=== PATIENT | female | born 1940 | race Caucasian/White ===

== ENCOUNTER → 2016-08-19 | Outpatient (CLI) | payer MEDICARE, OTHER | LOC: MC.RAD 10:00 | DX: Z12.31 Encounter for screening mammogram for malignant neoplasm of breast (principal) ==

== ENCOUNTER → 2017-06-13 | Outpatient (CLI) | payer MEDICARE, OTHER ==
[2017-06-13 11:13] LABS: HIV 1/2 Antibodies Non-Reactive; HIV-1p24 Antigen Non-Reactive
== END ==
LOC: COL.LAB 10:21
PROVIDERS: Orthopaedic Surgery
DX: Z01.812 Encounter for preprocedural laboratory examination (principal); M17.11 Unilateral primary osteoarthritis, right knee

== ENCOUNTER → 2017-09-01 | Outpatient (CLI) | payer MEDICARE, OTHER | LOC: MC.RAD 13:00 | DX: Z12.31 Encounter for screening mammogram for malignant neoplasm of breast (principal) ==

== ENCOUNTER → 2018-09-28 | Outpatient (CLI) | payer MEDICARE, OTHER | LOC: MC.RAD 10:45 | DX: Z12.31 Encounter for screening mammogram for malignant neoplasm of breast (principal) ==

== ENCOUNTER → 2019-10-22 | Outpatient (CLI) | payer MEDICARE, OTHER | LOC: MC.RAD 07:57 | DX: Z12.31 Encounter for screening mammogram for malignant neoplasm of breast (principal) ==

== ENCOUNTER → 2020-10-23 | Outpatient (CLI) | payer MEDICARE, OTHER ==
[~2020-10-23] MED LIST: ALEVE LIQCAPS PO; ATIVAN 0.50.5 MG/TAB PO; BIOTIN2500 MCG PO; DITROPAN 5MG TAB5 MG PO; FLONASEALLERGY NS; MELATONIN1 MG PO; MELATONIN5 M1 SL; MOVE FREE JOIN1 EACH PO; NORCO 325 MG-51 TAB PO; THERATEARS 0.60.6 ML OU; TYLENOL 325MG325 MG PO; TYLENOL 500MG500 MG PO; XALATAN EYE DROPS OU
== END ==
LOC: MC.RAD 10:08
DX: Z12.31 Encounter for screening mammogram for malignant neoplasm of breast (principal); R92.0 Mammographic microcalcification found on diagnostic imaging of breast

== ENCOUNTER → 2020-10-26 | Outpatient (CLI) | payer MEDICARE, OTHER | LOC: MC.RAD 13:51 | DX: R92.0 Mammographic microcalcification found on diagnostic imaging of breast (principal) ==

== ENCOUNTER → 2020-11-08 | Outpatient (CLI) | payer MEDICARE, OTHER | LOC: MC.RAD 08:27 | DX: C50.911 Malignant neoplasm of unspecified site of right female breast (principal); R92.0 Mammographic microcalcification found on diagnostic imaging of breast ==

== ENCOUNTER 2020-12-06 06:44 | Day surgery (SDC) | payer MEDICARE, OTHER ==
[~2020-12-06] VITALS: Ht 170.2 cm; Wt 97.6 kg
[2020-12-06] MEDS ORDERED: DITROPAN 5MG TAB5 MG PO (10:07)
[2020-12-06] MEDS ORDERED: ATIVAN 0.50.5 MG/TAB PO (10:08)
[2020-12-06] MEDS ORDERED: FLONASEALLERGY NS (10:11)
[2020-12-06] MEDS ORDERED: XALATAN EYE DROPS OU (10:12)
[2020-12-06] MEDS ORDERED: MOVE FREE JOIN1 EACH PO (10:14)
[2020-12-06] MEDS ORDERED: BIOTIN2500 MCG PO ×2 (10:14→10:16)
[2020-12-06] MEDS ORDERED: TYLENOL 325MG325 MG PO (10:18)
[2020-12-06] MEDS ORDERED: ALEVE LIQCAPS PO (10:18)
[2020-12-06] MEDS ORDERED: MELATONIN1 MG PO (10:20)
[2020-12-06] MEDS ORDERED: THERATEARS 0.60.6 ML OU (10:21)
[2020-12-06 10:26] VITALS: BP 125/63; PULSE 66; TEMP 97.7
--- NOTE | 2020-12-06 10:41 | NUR ---
Initial visit; Patient and her son thanked Community Youth Secretary for offering comfort, encouragement and prayer prior to her surgical procedure. Community Youth Secretary will continue to look in on Alonso while she is hospitalized.
[2020-12-06] MEDS ORDERED: NORCO 325 MG-51 TAB PO (14:07)
[2020-12-06 14:55] VITALS: BP 123/64; PULSE 49; TEMP 97.9
--- NOTE | 2020-12-06 14:55 | NUR ---
PATIENT BROUGHT BACK TO [facility] VIA CART PLACED ON MONITORS, HR LOW AT 49. PATIENT ON 2L VIA NC OXYGEN AT THIS TIME. MAINTAINS SPO2. DENIES NAUSEA STATES PAIN IS 2/10 FEELS LIKE A BURNING SENSATION. REQUESTS WATER AT THIS TIME. SON AT BEDSIDE. INCISIONS TO RIGHT BREAST AND RIGHT ARM PIT CDI. CALL BULLARD WITHIN REACH, ALL SAFETY MAINTAINED. WILL CONTINUE TO WATER.
[2020-12-06 15:10] VITALS: BP 132/83; PULSE 67
--- NOTE | 2020-12-06 15:10 | NUR ---
PATIENT TOLERATING FLUIDS WITHOUT DIFFICULTY. STATES SHE WOULD LIKE A MUFFIN AND SPRITE. VITAL SIGNS STABLE. HR WNL. WILL CONTINUE TO MONITOR.
[2020-12-06 15:25] VITALS: BP 119/58; PULSE 67
--- NOTE | 2020-12-06 15:25 | NUR ---
PATIENT STATES SHE IS FEELING GOOD FOLLOWING SNACKS, NO COMPLAINTS OF NAUSEA. WOULD LIKE PAIN PILL NOW PRIOR TO GOING HOME. PATIENT AMBULATED TO BATHROOM WITH STANDBY ASSIST. URINATED WITHOUT DIFFICULTY.
[2020-12-06 15:40] VITALS: BP 132/63; PULSE 60
--- NOTE | 2020-12-06 15:45 | NUR ---
IV REMOVED, MODERATE AMOUNT OF BLEEDING NOTED, REINFORCED. THIS RN HELPED PATIENT TO GET DRESSED AT THIS TIME. VITAL SIGNS STABLE. SON AT BEDSIDE TO DRIVE PATIENT HOME.
--- NOTE | 2020-12-06 16:05 | NUR ---
DISCHARGE INSTRUCTIONS REVIEWED WITH PATIENT AND FAMILY. ALL QUESTIONS ANSWERED. BANDAGES AND TAPE PROVIDED IN CASE OF BLEEDING. EXPLAINED IN DEPTH ON WHEN TO CALL PHYSICIAN. VERBALIZED UNDERSTANDING. BANDAGES REMAINS CLEAN DRY INTACT. PATIENT BROUGHT DOWN TO LOBBY VIA WHEEL CHAIR. TO BE DRIVEN HOME BY SON. ALL BELONGINGS IN HAND. SON STATES HE WILL STAY WITH MOTHER FOR THE EVENING.
== END 2020-12-06 16:05 | disposition home or self-care (01) ==
LOC: SDCO 06:44
DX: C50.311 Malignant neoplasm of lower-inner quadrant of right female breast (principal); I10 Essential (primary) hypertension; N32.9 Bladder disorder, unspecified; Z17.0 Estrogen receptor positive status [ER+]; Z20.822 Contact with and (suspected) exposure to COVID-19; Z79.899 Other long term (current) drug therapy; Z80.1 Family history of malignant neoplasm of trachea, bronchus and lung; Z80.0 Family history of malignant neoplasm of digestive organs; Z80.6 Family history of leukemia
CPT/HCPCS: A4648; A9541; J0690; J2250; J2405; J2704; J2795; J3010; J7120; Q9968

== ENCOUNTER 2020-12-22 05:25 | Day surgery (SDC) | payer MEDICARE, OTHER ==
[~2020-12-22] VITALS: Ht 170.2 cm; Wt 97.0 kg
[~2020-12-22 05:25] MED LIST changes: -MELATONIN5 M1 SL; -TYLENOL 500MG500 MG PO
[2020-12-22 05:52] VITALS: BP 131/70; PULSE 91; TEMP 97.1
[2020-12-22] MEDS ORDERED: TYLENOL 500MG500 MG PO (05:57)
[2020-12-22] MEDS ORDERED: MELATONIN5 M1 SL (05:59)
[2020-12-22 08:30] VITALS: BP 124/57; PULSE 58; TEMP 97.1
--- NOTE | 2020-12-22 08:30 | NUR ---
The patient arrived back to [place] [facility] from the recovery room at this time. The patient appears alert and oriented and denies any pain or nausea at this time. The patient's dressing to her right breast appears clean, dry and intact. The patient agrees to try some ice water at this time. The patient's daughter was brought back to be at her bedside. Call light is within reach. Will continue to monitor the patient.
[2020-12-22 08:45] VITALS: BP 116/58; PULSE 57
--- NOTE | 2020-12-22 08:45 | NUR ---
The patient appears to be tolerating the water well. Vital signs appear stable. The patient's oxygen was weaned down to 1L per nasal cannula at this time. Will continue to monitor the patient.
[2020-12-22 09:00] VITALS: BP 123/55; PULSE 51
--- NOTE | 2020-12-22 09:00 | NUR ---
The patient was weaned down to room air at this time. The patient agrees to try a banana nut muffin at this time. The patient's daugther remains at her bedside. Will continue to monitor the patient.
[2020-12-22 09:15] VITALS: BP 110/68; PULSE 62
--- NOTE | 2020-12-22 09:15 | NUR ---
The patient has finsihed his muffin and appeared to tolerate it well. The patient agrees to try and use the bathroom. The patient ambulated to the bathroom with the stand by assistance of one nurse and appeared to tolerate the activity well. The nurse instructed the patient that if she is able to void that she can get dressed and notify the staff when she is ready to review her discharge instructions.
--- NOTE | 2020-12-22 09:35 | NUR ---
Discharge instructions were reviewed with the patient and her daughter at this time. They both verbalized understanding and have no questions for the nurse at this time. The patient's IV to her left hand was removed and a pressure dressing was applied to the site. The patient is dressed and ready to be escorted out after successfully voiding.
--- NOTE | 2020-12-22 09:45 | NUR ---
The patient was escorted out via wheelchair to a private vehicle by JAKE Garvey. The patient's belongings and discharge paperwork were sent with her. The patient's daughter is present to drive her home.
== END 2020-12-22 09:45 | disposition home or self-care (01) ==
LOC: SDCO 05:25
DX: C50.311 Malignant neoplasm of lower-inner quadrant of right female breast (principal); E78.2 Mixed hyperlipidemia; I10 Essential (primary) hypertension; N39.41 Urge incontinence; M19.90 Unspecified osteoarthritis, unspecified site; F32.9 Major depressive disorder, single episode, unspecified; F41.9 Anxiety disorder, unspecified; Z90.89 Acquired absence of other organs; Z79.899 Other long term (current) drug therapy; Z98.51 Tubal ligation status; Z87.891 Personal history of nicotine dependence; Z83.3 Family history of diabetes mellitus; Z80.0 Family history of malignant neoplasm of digestive organs; Z80.1 Family history of malignant neoplasm of trachea, bronchus and lung; Z80.8 Family history of malignant neoplasm of other organs or systems
CPT/HCPCS: A4648; J0690; J1100; J2405; J2704; J3010; J7120

== ENCOUNTER → 2021-11-05 | Outpatient (CLI) | payer MEDICARE, OTHER ==
[~2021-11-05] MED LIST changes: +MELATONIN5 M1 SL; +TYLENOL 500MG500 MG PO
== END ==
LOC: MC.RAD 13:45
DX: Z85.3 Personal history of malignant neoplasm of breast (principal); Z98.890 Other specified postprocedural states

== ENCOUNTER → 2023-04-02 | Outpatient (CLI) | payer MEDICARE, OTHER ==
[2023-04-02 10:43] LABS: BASO # 0.1 K/mm3 (0.0-0.2); EOS # 0.2 K/mm3 (0.0-0.7); EOS % 3.3 % (0.0-4.0); GRAN # 4.3 K/mm3 (1.4-6.5); GRAN % 62.6 % (42.2-75.2); HEMATOCRIT 42.9 % (37.0-47.0); HEMOGLOBIN 14.3 g/dl (12.5-16.0); LYMPH # 1.6 K/mm3 (1.2-3.4); LYMPH % 23.1 % (20.0-51.0); MEAN CELL VOLUME 87 fl (80.0-100.0); MEAN CORPUSCULAR HEMOGLOBIN 29 pg (27-31); MEAN CORPUSCULAR HGB CONC 33 g/dl (33.0-37.0); MEAN PLATELET VOLUME 8.9 fl (7.4-10.4); MONO # 0.7 K/mm3 (0.1-0.6); MONO % 9.6 % (1.7-9.3); PLATELET COUNT 321 K/mm3 (130-400); RED BLOOD COUNT 4.91 M/mm3 (4.10-5.30); REDCELL DISTRIBUTION WIDTH-CV 14.2 % (11.5-14.5)
[2023-04-02 11:09] LABS: ALBUMIN 3.5 gm/dL (3.4-4.8); BILIRUBIN,TOTAL 0.5 mg/dL (0.2-1.2); CALCIUM 9.4 mg/dL (8.4-10.2); CHOLESTEROL RISK RATIO 4.1; CREATININE, serum 0.88 mg/dL (0.57-1.11); POTASSIUM 4.2 mmol/L (3.5-4.5); TOTAL PROTEIN 6.4 gm/dL (6.2-8.1)
[2023-04-02 11:29] LABS: THYROID STIMULATING HORMONE 3.83 uIU/mL (0.350-4.940)
== END ==
LOC: ZCOL.LAB 10:36
PROVIDERS: Internal Medicine
DX: I11.9 Hypertensive heart disease without heart failure (principal); D64.9 Anemia, unspecified; M19.90 Unspecified osteoarthritis, unspecified site; E55.9 Vitamin D deficiency, unspecified